=== PATIENT | male | born 1950 | race Caucasian/White ===

== ENCOUNTER 2017-05-05 11:01 | Day surgery (SDC) | payer OTHER ==
[~2017-05-05 11:01] MED LIST: Buffered Lidocaine 0.9% SYRIN* 5 ML/SYR SYRINGE INTRADERM ONE; Famotidine IV* 10 MG/ML 2 ML (20 mg) IV ONE
[2017-05-05] MEDS ORDERED: ceFAZolin 2 GM PREMIX (*) 50 ML IVPB ONE (11:14)
[2017-05-05] MEDS ORDERED: Famotidine IV* 10 MG/ML 2 ML (20 mg) ONE (11:14)
[2017-05-05] MEDS ORDERED: Buffered Lidocaine 0.9% SYRIN* 5 ML/SYR SYRINGE ONE (11:15)
[2017-05-05] MEDS ORDERED: Succinylcholine* 20 MG/ML 10 ML VIAL ONE (11:44)
[2017-05-05] MEDS ORDERED: Ondansetron INJ* 2 MG/ML VIAL ONE (11:44)
[2017-05-05] MEDS ORDERED: Midazolam* 1 MG/ML 5 ML VIAL (5 MG) ONE (11:44)
[2017-05-05] MEDS ORDERED: Dexamethasone IV* 4 MG/ML 1 ML (4 MG) ONE (11:44)
[2017-05-05] MEDS ORDERED: Lidocaine 2% PF * 5 ML VIAL ONE (11:44)
[2017-05-05] MEDS ORDERED: Propofol* 10 MG/ML 20 ML BTL IV PUSH ONE (11:44)
[2017-05-05] MEDS ORDERED: Ketorolac INJ* 30 MG/ML 1 ML VIAL ONE (11:44)
[2017-05-05] MEDS ORDERED: fentaNYL* 50 MCG/ML 2 ML VIAL (100 MCG VIAL) ONE ×2 (11:44→14:59)
[2017-05-05] MEDS ORDERED: Rocuronium* 10 MG/ML VIAL ONE (11:45)
[2017-05-05] MEDS ORDERED: Bupivacaine 0.25% SDV* 30 ML ONE (13:23)
[2017-05-05] MEDS ORDERED: DiMENhydriNATE IV* 50 MG/ML VIAL ONE (13:41)
[2017-05-05] MEDS ORDERED: Acetaminophen TAB* 325 MG PO PRN (14:01)
[2017-05-05] MEDS ORDERED: oxyCODONE TAB* 5 MG TAB PO PRN (14:01)
[2017-05-05] MEDS ORDERED: DiMENhydriNATE IV* 50 MG/ML VIAL IV PUSH PRN (14:01)
[2017-05-05] MEDS ORDERED: HYDROmorphone* 1 MG/ML 1 ML CARPUJECT IV PRN (14:01)
[2017-05-05] MEDS ORDERED: EPHEDrine (Pressors)* 50 MG/ML VIAL ONE (14:24)
[2017-05-05] MEDS ORDERED: oxyCODONE/Acetamin 5/325 MG* TAB PO PRN (15:46)
[2017-05-05 17:32] VITALS: BP 115/59
--- NOTE | 2017-05-06 13:55 | OP ---
DATE OF OPERATION: 05/05/17 [facility] DATE OF : 54 SURGEON: Giovanni Richardson MD MACHINE TOOL REBUILDER: NATALIE Leung ANESTHESIOLOGIST: Yolie Morrison MD ANESTHESIA: General with local. PRE-OP DIAGNOSIS: Recurrent right inguinal hernia. POST-OP DIAGNOSIS: Recurrent right indirect inguinal hernia. OPERATIVE PROCEDURE: Totally extraperitoneal repair with mesh of a recurrent right indirect inguinal hernia. ESTIMATED BLOOD LOSS: Minimal. WOUND CLASSIFICATION: One. COMPLICATIONS: None. DRAINS: None. SPECIMENS: None. DESCRIPTION OF PROCEDURE: Written informed consent was obtained, the right groin was marked with indelible ink and preoperative antibiotics were administered. The patient was taken to the operating room and placed in a supine position. Sequential compression devices and a warming blanket were applied. Initially a routine Clayton catheter was attempted; however, this did not pass well and a 16- Montserratian Coude catheter was placed in the bladder without difficulty with clear urine drainage and was used throughout the remainder of the case. The abdomen was prepped and draped in the usual sterile fashion. Time-out verification was completed. Next, a small transverse incision was made just below into the right of the umbilicus and the anterior rectus sheath was identified and divided transversely. We were able to identify the rectus muscle and this was retracted laterally to expose the posterior sheath. This space was then developed inferiorly with a Janett clamp as well as digital dissection. Next, the Spacemaker balloon was then inserted into the space and was bluntly pushed down to oppose the pubic tubercle at the midline. Next we insufflated the balloon/Spacemaker with about 10 to 12 puffs of the balloon placing pressure on the left side as the plan was only to repair the right-sided known hernia. Once this was done, the Spacemaker balloon was removed and a 12-mm blunt portal was inserted into the preperitoneal space and insufflated to about 12 mmHg. Two 5 mm ports were placed several fingerbreadths below the port site in the midline for dissecting purposes. At this point, I was able to identify the pubic tubercle and conjoint tendon inferiorly on the right side. There did not appear to be evidence of a direct space hernia and the epigastric vessels were identified and kept anterior throughout and protected from injury. Just lateral to the epigastric vessels; however, from the previous open repair there were some fairly dense adhesions which we were able to dissect off the anterior abdominal wall using both the combination of sharp and blunt dissection. I was able to identify the anterior abdominal wall as well as the iliopubic tract out to the iliac crest. I was able to identify the peritoneal reflection laterally and followed this in a medial direction towards the internal ring and it appeared that there was a fairly significant indirect inguinal hernia. There was some significant scar tissue and it appeared to be in a chronic condition and with some difficulty the indirect sac was then reduced using graspers in usual fashion from the internal ring. I did make a rent into the peritoneum and this was closed with a 5-mm clip sales representative wire rope and this allowed us to continue with insufflation of the preperitoneal space. After the difficult dissection, I was able to reflect the peritoneum back down to along the retroperitoneum. Care was taken to prevent injury to the vas deference as well as the spermatic cord structures and the epigastric vessels. I did not note a direct space hernia. With this in mind, a large Bard preformed mesh was then placed in the preperitoneal space and using a CapSure device, it was tacked to the Ramirez's ligament in 2 places and into the anterior abdominal wall, one medial and one tacked lateral to the epigastric vessels. The mesh covered both spaces nicely without wrinkling and with care to prevent the peritoneum from reflecting down underneath the mesh. Then under direct vision, we allowed the area to desufflate holding the mesh in place to prevent wrinkling. In light of the tear into the peritoneum, I did enter the peritoneal cavity through the umbilical port site and this was insufflated. It appeared that the peritoneal repair was intact with no exposed mesh and no evidence of other intraabdominal issues. Port was then removed and the peritoneum at the umbilical port site was closed with a running 0-Polysorb suture. The anterior fascia was closed with interrupted 0- Polysorb suture. All 3 incisions were closed with subcuticular 4 -0 Polysorb suture. Steri-Strips were applied. The patient tolerated the procedure well and was taken to the recovery room in stable condition. [id number]/[facility] #: [id number] MTDD
== END 2017-05-05 18:27 | disposition home or self-care (01) ==
LOC: OR 11:01
PROVIDERS: ATTEND Surgery
DX: K40.91 Unilateral inguinal hernia, without obstruction or gangrene, recurrent (principal)
CPT/HCPCS: C1776; C1781; J0330; J0690; J1100; J1240; J1885; J2250; J2405; J2704; J3010

== ENCOUNTER 2019-08-25 18:13 | Emergency (ER) | payer OTHER ==
[2019-08-25 19:40] LABS: ABS Basophils 0.1 10^3/ul (0-0.2); ABS Eosinophils 0.2 10^3/ul (0-0.6); ABS Lymphocytes 1.9 10^3/ul (1.0-4.8); ABS Monocytes 0.6 10^3/ul (0-0.8); ABS Neutrophils 3.1 10^3/ul (1.5-7.7); Hematocrit 47 % (42-52); Hemoglobin 16.1 g/dL (14.0-18.0); Lymphocyte % 31.9 %; Mean Corpuscular HGB Conc 35 g/dL (31-36); Mean Corpuscular Hemoglobin 34 pg (27-31); Mean Corpuscular Volume 98 fL (80-94); Mean Platelet Volume 7.7 fL (7.4-10.4); Nucleated Red Blood Cells % 0.2; Platelet Count 245 10^3/uL (150-450); Red Blood Count 4.76 10^6 /uL (4.18-5.48); Red Cell Distribution Width 13 % (10-15); White Blood Count 5.9 10^3/uL (3.5-10.8)
[2019-08-25 19:45] LABS: INR 0.97 (0.82-1.09)
[2019-08-25 19:46] LABS: Albumin 4.4 g/dL (3.2-5.2); Albumin/Globulin Ratio 2.1 (1-3); Calcium 9.4 mg/dL (8.6-10.3); EGFR African American 127.7 (>60); EGFR Non-African American 105.5 (>60); Globulin 2.1 g/dL (2-4); Potassium 3.9 mmol/L (3.5-5.0); Total Bilirubin 0.4 mg/dL (0.2-1.0); Total Protein 6.5 g/dL (6.4-8.9)
[2019-08-25 19:48] LABS: Troponin I 0.01 ng/mL (<0.03)
[2019-08-25 20:00] LABS: TSH (Thyroid Stimulating Horm) 1.59 mcIU/mL (0.34-5.60)
--- NOTE | 2019-08-25 20:22 | ED ---
Palpitations / Dysrhythmia - HPI Summary HPI Summary: Patient is a 69 y/o M presenting to [facility] with complaints of a fast, irregularly irregular heart rate. Patient works the overnight on [address] at [facility]. He states that he was working this previous night, came home, and slept. At around 1530 08/25/19, he awoke and went to the bathroom. As he was walking back to bed, he noticed heart palpitations. He states that he had difficulty getting a proper pulse. He later showered and had dinner. He measured his pulse with his stethoscope and measured a HR of 105 BPM that was irregularly irregular. Palpitations resolved around 1800 when the patient came to the ED. Fatigue is endorsed but this is related to having worked an overnight shift. He denies CP, tingling/numbness/pain in his arm or jaw and SOB. Patient states that he had cold Sx a few weeks ago that has since resolved. He denies tobacco usage and notes that he has a glass of wine weekly. No FMHx of blood clots noted. Pt does not report any fever, chills, erythema of eyes, sore throat, CP, SOB, cough, abdominal pain, N/V, dysuria, hematuria, myalgia, edema, rash, or dizziness. On triage, pain is denied. Nothing is noted to aggravate/alleviate Sx. Home medications and allergies are reviewed. - History of Current Complaint Chief Complaint: EDDysrhythmPalp Time Seen by Provider: 08/25/19 19:50 Hx Obtained From: Patient Onset/Duration: Lasting Hours, Resolved Timing: Intermittent Episodes Lasting: Severity Currently: None - pain denied Character: Fast, Irregular Aggravating: Nothing Alleviating: Nothing Associated Signs & Symptoms: Negative - Allergy/Home Medications Allergies/Adverse Reactions: Allergies Allergy/AdvReac Type Severity Reaction Status Date / Time No Known Allergies Allergy Verified 08/25/19 18:18 Home Medications: Home Medications NK [No Home Medications Reported] 08/25/19 [History Confirmed 08/25/19] PMH/Surg Hx/FS Hx/Imm Hx GI History: Reports: Other GI Disorders - RIGHT INGUINAL HERNIA DX 10 DAYS AGO History: Reports: Other Problems/Disorders - LEFT SPERMATOCELE 2010 Musculoskeletal History: Reports: Hx Arthritis - THUMBS, Other Musculoskeletal History - HX OF DEGENERATIVE DISC DISEASE, PINCHED NERVE IN BACK, OK NOW Sensory History: Reports: Hx Contacts or Glasses - GLASSES Denies: Hx Cataracts, Hx Glaucoma, Hx Hearing Aid Opthamlomology History: Reports: Hx Contacts or Glasses - GLASSES Denies: Hx Cataracts, Hx Glaucoma Neurological History: Reports: Other Neuro Impairments/Disorders - 2010 PINCHED NERVE IN BACK, OK NOW - Cancer History Hx Chemotherapy: No - Surgical History Surgery Procedure, Year, and Place: BILATERAL INGUINAL HERNIA REPAIR [facility]. REMOVAL OF 2 LYMPH NODES IN LEFT GROIN 1990 [facility]. SPERMATOCELE 2010 [facility] Hx Anesthesia Reactions: Yes - SEVERE N/V POST OP Infectious Disease History: No Infectious Disease History: Denies: Traveled Outside the [place] in Last 30 Days - Family History Known Family History: Negative: Blood Disorder - no FMHx of blood clots - Social History Alcohol Use: Weekly Alcohol Amount: 1 DRINK/WEEK Substance Use Type: Reports: None Smoking Status (MU): Never Smoked Tobacco Have You Smoked in the Last Year: No Review of Systems Positive: Fatigue. Negative: Fever, Chills Negative: Erythema Negative: Sore Throat Positive: Palpitations. Negative: Chest Pain Negative: Shortness Of Breath, Cough Negative: Abdominal Pain, Vomiting, Nausea Negative: dysuria, hematuria Negative: Myalgia, Edema Negative: Rash Neurological: Other - negative - dizziness All Other Systems Reviewed And Are Negative: Yes Physical Exam - Summary Physical Exam Summary: Constitutional: Well-developed, Well-nourished, Alert. (-) Distressed Skin: Warm, Dry HENT: Normocephalic; Atraumatic Eyes: Conjunctiva normal Neck: Musculoskeletal ROM normal neck. (-) JVD, (-) Stridor, (-) Tracheal deviation Cardio: Rhythm regular, rate normal, Heart sounds normal; Intact distal pulses; The pedal pulses are 2+ and symmetric. Radial pulses are 2+ and symmetric. (-) Murmur Pulmonary/Chest wall: Effort normal. (-) Respiratory distress, (-) Wheezes, (-) Rales Abd: Soft, (-) tenderness, (-) Distension, (-) Guarding, (-) Rebound Musculoskeletal: (-) Edema Lymph: (-) Cervical adenopathy Neuro: Alert, Oriented x3 Psych: Mood and affect Normal Triage Information Reviewed: Yes Vital Signs On Initial Exam: Initial Vitals Temp Pulse Resp BP Pulse Ox 98.4 F 77 16 126/78 100 08/25/19 18:15 08/25/19 18:15 08/25/19 18:15 08/25/19 18:15 08/25/19 18:15 Vital Signs Reviewed: Yes Procedures - Sedation Patient Received Moderate/Deep Sedation with Procedure: No Diagnostics - Vital Signs Vital Signs Temp Pulse Resp BP Pulse Ox 08/25/19 19:40 97.7 F 68 18 121/61 98 08/25/19 18:15 98.4 F 77 16 126/78 100 - Laboratory Lab Results: Lab Results 08/25/19 08/25/19 08/25/19 Range/Units 18:35 18:35 18:35 WBC 5.9 (3.5-10.8) 10^3/uL RBC 4.76 (4.18-5.48) 10^6 /uL Hgb 16.1 (14.0-18.0) g/dL Hct 47 (42-52) % MCV 98 H (80-94) fL MCH 34 H (27-31) pg MCHC 35 (31-36) g/dL RDW 13 (10-15) % Plt Count 245 (150-450) 10^3/uL MPV 7.7 (7.4-10.4) fL Neut % (Auto) 52.7 % Lymph % (Auto) 31.9 % Park % (Auto) 11.0 % Eos % (Auto) 3.0 % Baso % (Auto) 1.4 % Absolute Neuts (auto) 3.1 (1.5-7.7) 10^3/ul Absolute Lymphs (auto) 1.9 (1.0-4.8) 10^3/ul Absolute Monos (auto) 0.6 (0-0.8) 10^3/ul Absolute Eos (auto) 0.2 (0-0.6) 10^3/ul Absolute Basos (auto) 0.1 (0-0.2) 10^3/ul Absolute Nucleated RBC 0.0 10^3/ul Nucleated RBC % 0.2 INR (Anticoag Therapy) 0.97 (0.82-1.09) D-Dimer, Quantitative Pending Sodium (135-145) mmol/L Potassium (3.5-5.0) mmol/L Chloride (101-111) mmol/L Carbon Dioxide (22-32) mmol/L Anion Gap (2-11) mmol/L BUN (6-24) mg/dL Creatinine (0.67-1.17) mg/dL Est GFR ( Amer) (>60) Est GFR (Non-Af Amer) (>60) BUN/Creatinine Ratio (8-20) Glucose (70-100) mg/dL Lactic Acid 1.3 (0.5-2.0) mmol/L Calcium (8.6-10.3) mg/dL Total Bilirubin (0.2-1.0) mg/dL AST (13-39) U/L ALT (7-52) U/L Alkaline Phosphatase (34-104) U/L Troponin I (<0.03) ng/mL B-Natriuretic Peptide (<=100) pg/mL Total Protein (6.4-8.9) g/dL Albumin (3.2-5.2) g/dL Globulin (2-4) g/dL Albumin/Globulin Ratio (1-3) TSH (0.34-5.60) mcIU/mL 08/25/19 08/25/19 Range/Units 19:17 19:17 WBC (3.5-10.8) 10^3/uL RBC (4.18-5.48) 10^6 /uL Hgb (14.0-18.0) g/dL Hct (42-52) % MCV (80-94) fL MCH (27-31) pg MCHC (31-36) g/dL RDW (10-15) % Plt Count (150-450) 10^3/uL MPV (7.4-10.4) fL Neut % (Auto) % Lymph % (Auto) % Park % (Auto) % Eos % (Auto) % Baso % (Auto) % Absolute Neuts (auto) (1.5-7.7) 10^3/ul Absolute Lymphs (auto) (1.0-4.8) 10^3/ul Absolute Monos (auto) (0-0.8) 10^3/ul Absolute Eos (auto) (0-0.6) 10^3/ul Absolute Basos (auto) (0-0.2) 10^3/ul Absolute Nucleated RBC 10^3/ul Nucleated RBC % INR (Anticoag Therapy) (0.82-1.09) D-Dimer, Quantitative Sodium 137 (135-145) mmol/L Potassium 3.9 (3.5-5.0) mmol/L Chloride 104 (101-111) mmol/L Carbon Dioxide 30 (22-32) mmol/L Anion Gap 3 (2-11) mmol/L BUN 17 (6-24) mg/dL Creatinine 0.74 (0.67-1.17) mg/dL Est GFR ( Amer) 127.7 (>60) Est GFR (Non-Af Amer) 105.5 (>60) BUN/Creatinine Ratio 23.0 H (8-20) Glucose 127 H (70-100) mg/dL Lactic Acid (0.5-2.0) mmol/L Calcium 9.4 (8.6-10.3) mg/dL Total Bilirubin 0.40 (0.2-1.0) mg/dL AST 22 (13-39) U/L ALT 22 (7-52) U/L Alkaline Phosphatase 55 (34-104) U/L Troponin I 0.01 (<0.03) ng/mL B-Natriuretic Peptide 39 (<=100) pg/mL Total Protein 6.5 (6.4-8.9) g/dL Albumin 4.4 (3.2-5.2) g/dL Globulin 2.1 (2-4) g/dL Albumin/Globulin Ratio 2.1 (1-3) TSH 1.59 (0.34-5.60) mcIU/mL Result Diagrams: 08/25/19 18:35 08/25/19 19:17 Lab Statement: Any lab studies that have been ordered have been reviewed, and results considered in the medical decision making process. - Radiology CXR Radiology Interpretation Completed By: ED Physician Summary of Radiographic Findings: No acute process, pending official report. - EKG 1824 Cardiac Rate: NL - rate of 67 BPM EKG Rhythm: Sinus Rhythm Summary of EKG Findings: EKG showed NSR with rate of 67 BPM, no STEMI. This EKG was reviewed and interpreted by ED physician. Re-Evaluation - Re-Evaluation First Eval Re-Evaluation Time: 21:22 Comment: Results of workup were discussed with the patient. He is observed to be in sinus bradycardia and asymptomatic. Suspect either SVT or afib, holter monitor was recommended to the patietn. He will follow up with his PCP in 1-2 days for this. Course/Dx - Course Course Of Treatment: Patient is a 69 y/o M presenting to [facility] with complaints of a fast, irregularly irregular heart rate. Patient works the overnight on [address] at [facility]. He states that he was working this previous night, came home, and slept. At around 1530 08/25/19, he awoke and went to the bathroom. As he was walking back to bed, he noticed heart palpitations. He states that he had difficulty getting a proper pulse. He later showered and had dinner. He measured his pulse with his stethoscope and measured a HR of 105 BPM that was irregularly irregular. Palpitations resolved around 1800 when the patient came to the ED. Fatigue is endorsed but this is related to having worked an overnight shift. He denies CP, tingling/numbness/pain in his arm or jaw and SOB. Patient states that he had cold Sx a few weeks ago that has since resolved. He denies tobacco usage and notes that he has a glass of wine weekly. No FMHx of blood clots noted. Physical exam is unremarkable. Pulses are normal. EKG showed NSR with rate of 67 BPM, no STEMI. CXR showed no acute process. Bloodwork was obtained. D-dimer negative. Trop negative. TSH and free T4 were WNL. Only abnormalities noted on bloodwork are glucose 127, BUN/creatinine ratio 23, MCV 98, MCH 34. There is no evidence for PE or electrolyte disturbance. Results of workup were discussed with the patient. He is observed to be in sinus bradycardia and asymptomatic. Suspect either SVT or afib, holter monitor was recommended to the patietn. He will follow up with his PCP in 1-2 days for this. - Diagnoses Provider Diagnoses: Palpitations Discharge ED - Sign-Out/Discharge Documenting (check all that apply): Patient Departure - discharge - Discharge Plan Condition: Stable Disposition: HOME Patient Education Materials: Heart Palpitations (ED) Referrals: Tor Venegas MD [Primary Care Provider] - 2 Days Additional Instructions: RETURN TO THE EMERGENCY DEPARTMENT FOR CHANGING OR WORSENING SYMPTOMS. FOLLOW UP WITH YOUR PRIMARY CARE PHYSICIAN IN 1-2 DAYS TO DISCUSS HOLTER MONITOR. - Attestation Statements Document Initiated by Scribe: Yes Documenting Scribe: VALENTIN ELLIS Provider For Whom Scribe is Documenting (Include Credential): DEBORAH ROSE MD Scribe Attestation: IVALENTIN, scribed for DEBORAH ROSE MD on 08/25/19 at 2130. Status of Scribe Document: Ready
[2019-08-25 20:50] LABS: Free T4 0.73 ng/dL (0.61-1.12)
[2019-08-25 21:43] VITALS: BP 105/60
== END 2019-08-25 21:41 | disposition home or self-care (01) ==
LOC: ED 18:13
DX: R00.2 Palpitations (principal); R53.83 Other fatigue; R94.31 Abnormal electrocardiogram [ECG] [EKG]
CPT/HCPCS: 36415; 71045; 80053; 83605; 83880; 84439; 84443; 84484; 85025; 85379; 85610; 93005; 99283

== ENCOUNTER 2023-10-20 08:14 | Observation (INO) ==
[2023-10-20 08:48] LABS: ABS Basophils 0.1 10^3/uL (0.0-0.1); ABS Eosinophils 0.2 10^3/uL (0.0-0.5); ABS Lymphocytes 2.9 10^3/uL (1.0-4.8); ABS Monocytes 0.7 10^3/uL (0.0-1.1); Eosinophil % 2.8 %; Hematocrit 47.1 % (38-53); Hemoglobin 16.4 g/dL (13.2-16.3); Lymphocyte % 42.2 %; Mean Corpuscular Hemoglobin 32.9 pg (27-33); Mean Corpuscular Hgb Conc 34.8 g/dL (31-36); Mean Corpuscular Volume 94.7 fL (80-97); Mean Platelet Volume 7.2 fL (7.5-11.2); Nucleated Red Blood Cells % 0.1 %/100WBC (0.0-0.8); Platelet Count 215 10^3/uL (150-450); Red Blood Count 4.98 10^6/uL (4.06-5.63); Red Cell Distribution Width 13.7 % (12-17); White Blood Count 6.8 10^3/uL (3.6-10.2)
[2023-10-20 09:03] LABS: INR 0.94 (0.83-1.13)
[2023-10-20 09:30] LABS: Albumin 4.5 g/dL (3.2-5.2); Albumin/Globulin Ratio 2.3 (1-3); Calcium 9.3 mg/dL (8.6-10.3); Creatinine, Serum 0.78 mg/dL (0.67-1.17); Total Bilirubin 0.5 mg/dL (0.2-1.0); Total Protein 6.5 g/dL (6.4-8.9); eGFR CKD-EPI 95.3 (>60)
[2023-10-20] MEDS: Metoprolol Tartrate 5 mg VIAL 5 ml VIAL (1 mg/ml) IV ONE (09:32)
[2023-10-20 10:03] LABS: TSH Ultra Thyroid Stim Horm 2.56 mcIU/mL (0.34-5.60)
[2023-10-20 10:21] LABS: High Sensitivity Troponin 1 Hr 8 pg/mL (<20)
[2023-10-20 11:12] LABS: Magnesium 2.1 mg/dL (1.9-2.7)
[2023-10-20] MEDS: Senna TAB 8.6 mg TAB PO SCH (21:22)
[2023-10-21 06:12] LABS: ABS Basophils 0.1 10^3/uL (0.0-0.1); ABS Eosinophils 0.2 10^3/uL (0.0-0.5); ABS Lymphocytes 2.9 10^3/uL (1.0-4.8); ABS Neutrophils 3.5 10^3/uL (1.5-7.6); ABS Nucleated RBC 0.01 10^3/ul; Eosinophil % 2.6 %; Hematocrit 42.9 % (38-53); Lymphocyte % 37.8 %; Mean Corpuscular Hemoglobin 33.1 pg (27-33); Mean Corpuscular Volume 94.7 fL (80-97); Mean Platelet Volume 7.4 fL (7.5-11.2); Nucleated Red Blood Cells % 0.2 %/100WBC (0.0-0.8); Platelet Count 218 10^3/uL (150-450); Red Blood Count 4.53 10^6/uL (4.06-5.63); Red Cell Distribution Width 13.5 % (12-17); White Blood Count 7.6 10^3/uL (3.6-10.2)
[2023-10-21 06:38] LABS: Calcium 8.9 mg/dL (8.6-10.3); Creatinine, Serum 0.83 mg/dL (0.67-1.17); Potassium 4.5 mmol/L (3.5-5.0); eGFR CKD-EPI 93.6 (>60)
[2023-10-21] MEDS: Polyethylene Glycol 3350 17 GM PACKET PO SCH (08:57)
[2023-10-21] MEDS ORDERED: fentaNYL 100 mcg/2 ml 50 MCG/ML VIAL ONE (13:55)
[2023-10-21] MEDS ORDERED: Midazolam 5 mg/5 ml VIAL 1 mg/ml 5 ml VIAL (5 mg) ONE (13:55)
[2023-10-21] MEDS ORDERED: Naloxone 0.4 mg VIAL 0.4 mg/ml 1 ml VIAL ONE (13:56)
[2023-10-21] MEDS ORDERED: Flumazenil 0.5 mg/5 ml 0.1 MG/ML 5 ml VIAL ONE (13:56)
[2023-10-21] MEDS: fentaNYL 100 mcg/2 ml 50 MCG/ML VIAL IV SLOW PU ONE (15:02)
[2023-10-21] MEDS: Midazolam 10 mg/10 ml VIAL 1 mg/ml 10 ml VIAL (10 mg) IV SLOW PU ONE (15:03)
[2023-10-21 15:30] VITALS: BP 90/61
== END 2023-10-21 16:16 | disposition home or self-care (01) ==
LOC: EDHOLD 08:14 → ED 08:14 → MEDTELE 17:09
PROVIDERS: ADMIT Internal Medicine; ATTEND Internal Medicine
PROC: CARDVER (ICD-10-PCS; 2023-10-21 13:15)